=== PATIENT | male | born 1980 | race Caucasian/White ===

== ENCOUNTER 2019-07-19 10:31 | Outpatient (RCR) | payer OTHER, SELFPAY ==
[2019-07-19 13:42] LABS: INR 1.8; Prothrombin Time 20.6 Seconds (11.1-14.7)
== END 2019-10-17 23:59 | disposition home or self-care (01) ==
LOC: ANHLAB 10:31
PROVIDERS: PCP Internal Medicine Hematology & Oncology; Visit Provider Internal Medicine Hematology & Oncology
DX: D68.59 Other primary thrombophilia (principal); Z86.718 Personal history of other venous thrombosis and embolism
CPT/HCPCS: 36415; 85610

== ENCOUNTER 2019-10-18 08:17 | Outpatient (RCR) | payer OTHER, SELFPAY ==
[2019-08-30 14:27] LABS: INR 2.5; Prothrombin Time 26.2 Seconds (11.1-14.7)
[2019-10-18 12:12] LABS: INR 2.9
== END 2019-11-28 23:59 | disposition home or self-care (01) ==
LOC: ANHLAB 08:17
PROVIDERS: PCP Family Medicine; Visit Provider Internal Medicine Hematology & Oncology
DX: D68.59 Other primary thrombophilia (principal); Z86.718 Personal history of other venous thrombosis and embolism
CPT/HCPCS: 36415; 85610

== ENCOUNTER 2019-11-15 09:02 | Outpatient (CLI) | payer OTHER, SELFPAY ==
[2019-11-15 09:17] LABS: Basophils Percent Auto 0.2 % (0.2-1.2); Eosinophils Absolute Auto 0.1 K/mm3 (0-0.3); Eosinophils Percent Auto 1.4 % (0-4.4); Immature Granulocyte Absolute 0.01 K/mm3 (0.00-0.031); Immature Granulocyte Percent A 0.2 % (0-0.5); Lymphocytes Absolute Auto 1.41 K/mm3 (0.9-3.2); Lymphocytes Percent Auto 27.8 % (18.3-44.2); Mean Corpuscular HGB Conc 33.3 g/dl (32-36); Mean Corpuscular Hemoglobin 29.1 pg (26-34); Mean Corpuscular Volume 87.3 fl (80-100); Mean Platelet Volume 10.6 fl (7.4-10.4); Monocytes Absolute Auto 0.6 K/mm3 (0.1-0.6); Neutrophils Percent Auto 58.4 % (45.5-73.1); Platelet Count Result 199 k/mm3 (150-375); Red Cell Distribution Width 13.6 % (11.5-14.5); White Blood Count 5.1 K/mm3 (4.5-10.0)
[2019-11-15 11:08] LABS: INR 1.7; Prothrombin Time 19.9 Seconds (11.1-14.7)
[2019-11-15 11:11] LABS: Alanine Aminotransferase 41 U/L (4-50); Albumin Level 4.3 g/dL (3.5-5.1); Alkaline Phosphatase 65 U/L (38-126); Aspartate Amino Transferase 30 U/L (17-59); Bilirubin,Total 0.5 mg/dL (0.2-1.3); Blood Urea Nitrogen 18 mg/dL (9-20); Calcium 9.1 mg/dL (8.4-10.2); Carbon Dioxide 26 mmol/L (22-30); Chloride 103 mmol/L (98-107); Cholesterol 137 mg/dL (0-200); Estimated Glomerular Filt Rate > 60; Glucose 129 mg/dL (75-110); HDL Direct 33 mg/dL; Hemoglobin A1C 5.6 % (<5.7); Potassium 4.3 mmol/L (3.4-5.0); Sodium 137 mmol/L (137-145); Triglycerides 77 mg/dL (<150)
[2019-11-15 11:22] LABS: LDL Cholesterol Direct 87 mg/dL
== END 2019-11-15 09:03 | disposition home or self-care (01) ==
LOC: ANHLAB 09:04
PROVIDERS: Internal Medicine Hematology & Oncology; PCP Family Medicine; Visit Provider Family Medicine
DX: D68.59 Other primary thrombophilia (principal); Z86.718 Personal history of other venous thrombosis and embolism
CPT/HCPCS: 36415; 80053; 80061; 83036; 84443; 85025; 85610

== ENCOUNTER 2020-02-17 10:34 | Outpatient (RCR) | payer OTHER, SELFPAY ==
[2019-12-31 12:22] LABS: Prothrombin Time 30.3 Seconds (11.1-14.7)
[2020-02-17 12:07] LABS: INR 1.7; Prothrombin Time 19.4 Seconds (11.1-14.7)
== END 2020-03-30 23:59 | disposition home or self-care (01) ==
LOC: ANHLAB 10:34
PROVIDERS: PCP Family Medicine; Visit Provider Internal Medicine Hematology & Oncology
DX: D68.59 Other primary thrombophilia (principal); Z86.718 Personal history of other venous thrombosis and embolism
CPT/HCPCS: 36415; 85610

== ENCOUNTER 2020-04-03 09:02 | Outpatient (CLI) | payer OTHER, SELFPAY ==
[2020-04-03 12:28] LABS: INR 2.6; Prothrombin Time 27.7 Seconds (11.1-14.7)
== END 2020-04-03 09:03 | disposition home or self-care (01) ==
PROVIDERS: PCP Family Medicine; Visit Provider Internal Medicine Hematology & Oncology
DX: D68.59 Other primary thrombophilia (principal); Z86.718 Personal history of other venous thrombosis and embolism
CPT/HCPCS: 36415; 85610

== ENCOUNTER 2020-05-08 09:04 | Outpatient (CLI) | payer OTHER, SELFPAY ==
[2020-05-08 11:35] LABS: INR 1.6; Prothrombin Time 18.7 Seconds (11.1-14.7)
== END 2020-05-08 09:05 | disposition home or self-care (01) ==
LOC: ANHLAB 09:07
PROVIDERS: PCP Family Medicine; Visit Provider Internal Medicine Hematology & Oncology
DX: Z86.718 Personal history of other venous thrombosis and embolism (principal)
CPT/HCPCS: 36415; 85610

== ENCOUNTER 2020-07-31 09:56 | Outpatient (RCR) | payer OTHER, SELFPAY ==
[2020-07-03 13:20] LABS: INR 2.1; Prothrombin Time 23.8 Seconds (11.1-14.7)
[2020-07-31 13:12] LABS: INR 2.1; Prothrombin Time 24.4 Seconds (11.1-14.7)
== END 2020-10-01 23:59 | disposition home or self-care (01) ==
LOC: ANHLAB 09:56
PROVIDERS: PCP Family Medicine; Visit Provider Internal Medicine Hematology & Oncology
DX: Z86.718 Personal history of other venous thrombosis and embolism (principal); D68.59 Other primary thrombophilia
CPT/HCPCS: 36415; 85610

== ENCOUNTER 2020-09-11 08:00 | Outpatient (CLI) | payer OTHER, SELFPAY ==
--- NOTE | ~2020-09-11 | US_ITS ---
EXAMINATION: US arterial ankle brachial ind EXAM DATE: 09/11/2020 09:22 INDICATION: Venous stasis ulcer of leg, varicose veins . TECHNIQUE: Segmental pressures and plethysmographic and Doppler waveforms of the brachial and lower e xtremity arteries were obtained. There is no prior study for comparison. FINDINGS: Right and left brachial artery pressures of 119 mm Hg and 126 mm Hg, respectively, are concordant (no rmal difference <= 30 mmHg). RIGHT LEG: The ankle-brachial index (HERVE) is 1.22 (normal >= 0.9-1). The great toe-brachial index (TBI) is 0.81 (normal >= 0.65). The lower extremity ratios, segmental pressure gradients as follows; Dorsalis pedis: 1.13 (143 mmHg). Posterior tibial: 1.22 (154 mmHg). (Normal gradients <= 20-30 mmHg between adjacent levels on the same leg or the same levels on the two legs). Arterial waveforms are triphasic. LEFT LEG: The ankle-brachial index (HERVE) is 1.09 (normal >= 0.9-1). The great toe-brachial index (TBI) is 0.72 (normal >= 0.65). The lower extremity ratios, segmental pressure gradients as follows; Dorsalis pedis: 1.09 (137 mmHg). Posterior tibial: 1.05 (132 mmHg). (Normal gradients <= 20-30 mmHg between adjacent levels on the same leg or the same levels on the two legs). Arterial waveforms are biphasic. IMPRESSION: 1. Right ankle-brachial index 1.22, normal. 2. Left ankle-brachial index 1.09, normal. Reviewed, dictated and finalized at location D. UNT SUPPORT MANAGER
--- NOTE | ~2020-09-11 | US_ITS ---
EXAMINATION: US venous doppler LE EXAM DATE: 09/11/2020 09:23 INDICATION: Venous stasis ulcer of leg, varicose veins . TECHNIQUE: Multiple grayscale, color flow and Doppler images of the lower extremity deep venous syste ms bilaterally were obtained and reviewed. Comparison is made to prior examination from 05/07/2018. FINDINGS: RIGHT SIDE Common femoral: -------- Normal. Profunda femoral: ------- Normal. Femoral: Normal. Popliteal: Linear scarring likely sequela from prior thrombus. Posterior tibial: --------- Normal. Peroneal: Normal. Gastrocnemius: Not visualized. Soleus: Not visualized. Greater saphenous: ----- Normal. Lesser saphenous: ------ Not visualized. LEFT SIDE Common femoral: -------- Normal. Profunda femoral: ------- Normal. Femoral: Normal. Popliteal: Normal. Posterior tibial: --------- Normal. Peroneal: Normal. Gastrocnemius: Not visualized. Soleus: Not visualized. Greater saphenous: ----- Normal. Lesser saphenous: ------ Not visualized. IMPRESSION: 1. No evidence of lower extremity deep venous thrombosis bilaterally. 2. Right popliteal linear scarring. Reviewed, dictated and finalized at location D. ING SERVICE ADMINISTRATOR
== END 2020-09-11 08:01 | disposition home or self-care (01) ==
LOC: ANHIMG 08:08
PROVIDERS: PCP Physician Assistant; Visit Provider Physician Assistant
DX: I83.009 Varicose veins of unspecified lower extremity with ulcer of unspecified site (principal)
CPT/HCPCS: 93922; 93970

== ENCOUNTER 2020-12-18 09:27 | Outpatient (RCR) | payer OTHER, SELFPAY ==
[2020-10-16 13:41] LABS: INR 2.8; Prothrombin Time 29.8 Seconds (11.1-14.7)
[2020-11-20 12:41] LABS: INR 1.7; Prothrombin Time 20.1 Seconds (11.1-14.7)
[2020-12-18 14:26] LABS: INR 2.3; Prothrombin Time 25.6 Seconds (11.1-14.7)
== END 2021-01-14 23:59 | disposition home or self-care (01) ==
LOC: ANHLAB 09:27
PROVIDERS: PCP Physician Assistant; Visit Provider Internal Medicine Hematology & Oncology
DX: D68.59 Other primary thrombophilia (principal); Z86.718 Personal history of other venous thrombosis and embolism
CPT/HCPCS: 36415; 85610

== ENCOUNTER 2021-05-29 12:56 | Emergency (ER) | payer OTHER, SELFPAY ==
--- NOTE | ~2021-05-29 | XR_ITS ---
EXAMINATION: XR chest 2V 05/29/2021 13:49 INDICATION: Cough PROCEDURE: 2 view chest COMPARISON: 08/14/2007 FINDINGS: The lungs are clear. The cardiomediastinal silhouette is within normal limits. There are no pleural effusions. There is no pneumothorax suspected. IMPRESSION: 1: NO ACUTE CARDIOPULMONARY DISEASE. Reviewed, dictated and finalized at location A.
[2021-05-29 13:08] VITALS: BP 140/86; PULSE 95; RESP 18; TEMP 36.4; O2SAT 96
--- NOTE | 2021-05-29 14:00 | ED.URI ---
HPI - URI/Sore Throat General Chief Complaint: Upper Respiratory Infection Stated Complaint: Sinus,Fever,Cough Source: patient Mode of arrival: ambulatory Limitations: no limitations History of Present Illness HPI Narrative: Patient is a 41-year-old male who presents complaining of cough, congestion, fever, chills and body aches x3 days. Patient reports congestion for over 10 days prior with new symptom onset in the past 3 days. Patient has a significant medical history that includes TX and unknown clotting syndrome. Patient takes Coumadin daily. He is not Covid vaccinated at this time, denies known Covid exposure. He denies all other complaints at this time. MD elicited complaint: fever, cough and nasal congestion Related Data Home Medications Medication Instructions Recorded Confirmed warfarin 10 mg tablet 10 mg PO DAILY 07/22/19 05/29/21 Allergies Allergy/AdvReac Type Severity Reaction Status Date / Time No Known Allergies Allergy Verified 05/29/21 13:47 Review of Systems Review of Systems: CONSTITUTIONAL: Denies fever, chills, or sweats. EYES: Denies visual changes, redness, or discharge. ENT: Reports congestion and sinus pressure. CARDIOVASCULAR: Denies chest pain, palpitations, or edema. RESPIRATORY: Reports cough, denies dyspnea. GASTROINTESTINAL: Denies abdominal pain, nausea, vomiting, or diarrhea. GENITOURINARY: Denies dysuria or hematuria. SKIN: Denies rash or itching. MUSCULOSKELETAL: Denies back pain, joint pain, or myalgia. NEUROLOGIC: Denies headache, numbness, dizziness, or weakness. PSYCHIATRIC: Denies anxiety or depression. [facility] Past Medical History Medical History CAD (coronary artery disease) Environmental allergies Heart attack age 26 History of recurrent deep vein thrombosis (DVT) Hx of blood clots Ingrown toenail of both feet Surgical History Surgical History History of tonsillectomy Family History Family History Grandparent Diabetes mellitus Grandparent Cancer Social History Social History Smoking status: Former smoker Tobacco type: cigarettes Second hand tobacco smoke exposure: No Smoking end date: 08/28/13 Alcohol intake: current Alcohol use details: 1 or 2 beers a month Substance use: never Substance use type: does not use Comments At the time of signature, I have reviewed and agree with nursing past medical, surgical, social, and family history unless otherwise noted. Please see nursing chart for further information. There is no relevant family history pertinent to the presenting complaint. Exam Narrative: GENERAL: Well-appearing, well-nourished, and in no acute distress. HEAD: Normocephalic, atraumatic. EYES: EOMI. No redness or drainage. Conjunctiva are normal. ENT: Mucous membranes pink and moist. Nares clear. No rhinorrhea. TMs normal bilaterally. Throat with mild erythema. Maxillary sinus tenderness with palpation. Uvula midline. NECK: AROM. Supple. No lymphadenopathy. CHEST: Right-sided expiratory wheezes noted. HEART: Regular rate and rhythm. EXTREMITIES: Normal range of motion. SKIN: Warm, dry, no rash. NEURO: No focal deficits. Alert and oriented x3. Gait steady. PSYCH: Normal affect. No signs of depression or anxiety. Course Vital Signs Vital signs: Vital Signs Temperature 36.4 C 05/29/21 13:08 Pulse Rate 95 05/29/21 13:08 Respiratory Rate 18 05/29/21 13:08 Blood Pressure 140/86 05/29/21 13:08 Pulse Oximetry 96 05/29/21 13:08 Temperature 36.4 C 05/29/21 13:08 Pulse Rate 95 05/29/21 13:08 Respiratory Rate 18 05/29/21 13:08 Blood Pressure 140/86 05/29/21 13:08 Pulse Oximetry 96 05/29/21 13:08 Reviewed. Patient has been instructed to follow-up with his PCP re
[2021-06-01 19:14] LABS: SARS-CoV-2 RNA PCR Positive
== END 2021-05-29 14:26 | disposition home or self-care (01) ==
PROVIDERS: Emergency Provider Nurse Practitioner; PCP Physician Assistant
DX: U07.1 COVID-19 (principal); Z87.891 Personal history of nicotine dependence; I25.10 Atherosclerotic heart disease of native coronary artery without angina pectoris; I25.2 Old myocardial infarction; Z86.711 Personal history of pulmonary embolism; D75.9 Disease of blood and blood-forming organs, unspecified
CPT/HCPCS: 71046; 87426; 99213; C9803; G0463; U0003; U0005

== ENCOUNTER 2021-10-07 07:33 | Emergency (ER) | payer OTHER, SELFPAY ==
--- NOTE | ~2021-10-07 | US_ITS ---
US venous doppler LE LT DATE: 10/07/2021 09:23 INDICATION: Swelling left lower extremity. History of deep venous thrombosis, patient on Coumadin the rapy. TECHNIQUE: Real-time and color flow imaging and Doppler analysis of the veins of the left lower extre mity COMPARISON: 09/11/2020 bilateral lower extremity deep venous thrombosis; no evidence of lower extremit y deep venous thrombosis was noted on 09/11/2020 FINDINGS: The left greater saphenous vein is patent. There is spontaneous and phasic flow and normal augmentation, signal and normal compression of the le ft common femoral, femoral and popliteal and peroneal veins. Thrombus is noted within the mid to distal posterior tibial veins and lesser saphenous vein. IMPRESSION: Deep venous thrombosis of left mid to distal posterior tibial veins Reviewed, dictated and finalized at Location A. Reviewed, dictated and finalized at location A. UT GRADER
--- NOTE | ~2021-10-07 | XR_ITS ---
EXAMINATION: XR tibia fibula LT 2V DATE: 10/07/2021 08:56 INDICATION: Open wound at the medial mid left calf. TECHNIQUE: Anteroposterior and lateral views of the left tibia and fibula were obtained. COMPARISON: None. FINDINGS: Alignment is normal. No fracture. No cortical erosions or periosteal reaction. Joint spaces are gini l. Mild soft tissue swelling along the medial aspect of the distal left calf. No soft tissue gas or r adiopaque foreign bodies. IMPRESSION: 1. No osseous abnormality or radiopaque foreign bodies. Reviewed, dictated and finalized at location A. SLINGER
[2021-10-07 07:56] VITALS: BP 136/86; PULSE 76; RESP 13; TEMP 36.7; O2SAT 97
--- NOTE | 2021-10-07 08:50 | ED.EXTPRO ---
HPI - Extremity Problem General Chief complaint: Extremity Problem,Nontraumatic Stated complaint: left leg redness Time Seen by Provider: 10/07/21 08:02 Source: patient Mode of arrival: ambulatory Limitations: no limitations History of Present Illness HPI Narrative: 41 years old white male presents with increased pain and swelling of left lower extremity mainly left foot started few days ago. History of chronic wound at the medial distal left leg for over 2 years. Been to many doctors, and wound care clinic without specific diagnosis. Patient noticed red streaks going up to the groin area at the back of the leg and thigh lately. Patient denies any fever, chills, nausea, vomiting, shortness of breath or chest pain. Patient had history of PE, deep vein thrombosis of the lower extremies for years been on Coumadin for over 19 years. Patient did not take his Coumadin this morning. Related Data Home Medications Medication Instructions Recorded Confirmed warfarin 10 mg tablet 10 mg PO DAILY 07/22/19 10/07/21 Allergies Allergy/AdvReac Type Severity Reaction Status Date / Time vancomycin Allergy Itching Verified 10/07/21 10:56 Review of Systems Review of Systems: CONSTITUTIONAL: Denies fever, chills, or sweats. EYES: Denies visual changes, redness, or discharge. ENT: Denies rhinorrhea, congestion, sore throat, or otalgia. CARDIOVASCULAR: Denies chest pain, palpitations, or edema. RESPIRATORY: Denies cough or dyspnea. GASTROINTESTINAL: Denies abdominal pain, nausea, vomiting, or diarrhea. GENITOURINARY: Denies dysuria or hematuria. SKIN: Denies rash or itching. MUSCULOSKELETAL: Denies back pain, joint pain, or myalgia. NEUROLOGIC: Denies headache, numbness, or weakness. PSYCHIATRIC: Denies anxiety or depression. [facility] Past Medical History Medical History CAD (coronary artery disease) Environmental allergies Heart attack age 26 History of recurrent deep vein thrombosis (DVT) Hx of blood clots Ingrown toenail of both feet Surgical History Surgical History History of tonsillectomy Family History Family History Grandparent Diabetes mellitus Grandparent Cancer Social History Social History Smoking status: Former smoker Tobacco type: cigarettes Second hand tobacco smoke exposure: No Smoking end date: 08/28/13 Alcohol intake: current Alcohol use details: 1 or 2 beers a month Substance use: never Substance use type: does not use Exam Narrative: General appearance: Well-developed, well-nourished Skin: Normal color, left lower extremity showed large dark hyperpigmented area at the medial side distally with a superficial ulcer at the center of it, no discharge, slightly warm, red streaks at the back of the knee and medial side of the thigh tender to touch, swelling tender foot dorsally without any erythema or bruises Head: Normocephalic, nontraumatic Eyes: Clear conjunctiva ENT: Oropharynx normal, ears normal, nose normal Neck: Supple, nontender Chest and respiratory: Airway patent, no respiratory distress, no accessory muscle use Heart: Regular rate/rhythm Abdomen: Soft, nontender, no organomegaly, quiet bowel sounds Vascular: Normal peripheral pulses, normal capillary refill. 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 Moises Murguia, Call o
[2021-10-07 09:29] LABS: Basophils Percent Auto 0.3 % (0.2-1.2); Eosinophils Absolute Auto 0.2 K/mm3 (0-0.3); Eosinophils Percent Auto 2.9 % (0-4.4); Hematocrit 46.7 % (42.0-52.0); Hemoglobin 15.8 g/dL (14.0-18.0); Immature Granulocyte Absolute 0.02 K/mm3 (0.00-0.031); Immature Granulocyte Percent A 0.3 % (0-0.5); Lymphocytes Absolute Auto 1.43 K/mm3 (0.9-3.2); Lymphocytes Percent Auto 24.5 % (18.3-44.2); Mean Corpuscular HGB Conc 33.8 g/dl (32-36); Mean Corpuscular Volume 88.6 fl (80-100); Mean Platelet Volume 10.5 fl (7.4-10.4); Monocytes Absolute Auto 0.8 K/mm3 (0.1-0.6); Monocytes Percent Auto 13.9 % (2.6-8.5); Neutrophils Absolute Auto 3.4 K/mm3 (1.3-6.7); Neutrophils Percent Auto 58.1 % (45.5-73.1); Platelet Count Result 152 k/mm3 (150-375); Red Blood Count 5.27 M/mm3 (4.6-6.20); Red Cell Distribution Width 13.5 % (11.5-14.5); White Blood Count 5.8 K/mm3 (4.5-10.0)
[2021-10-07 10:17] LABS: Alanine Aminotransferase 74 U/L (4-50); Albumin Level 4.3 g/dL (3.5-5.1); Alkaline Phosphatase 61 U/L (38-126); Anion Gap 5 mmol/L (8-16); Aspartate Amino Transferase 53 U/L (17-59); Bilirubin,Total 0.5 mg/dL (0.2-1.3); Blood Urea Nitrogen 21 mg/dL (9-20); Calcium 9.1 mg/dL (8.4-10.2); Carbon Dioxide 28 mmol/L (22-30); Chloride 104 mmol/L (98-107); Estimated CRCL calculation 90 ml/min; Estimated Glomerular Filt Rate > 60; Glucose 118 mg/dL (65-110); Potassium 4.2 mmol/L (3.4-5.0); Sodium 137 mmol/L (137-145)
[2021-10-07 10:39] LABS: INR 1.7; Prothrombin Time 19.7 Seconds (11.1-14.7)
[2021-10-07 10:40] LABS: Partial Thromboplastin Time 36.8 SECONDS (22.3-36.8)
--- NOTE | 2021-10-07 10:55 | PC.NURSE ---
c/o itching all over. pt face and trunk are red. ERP aware.
[2021-10-07] MEDS: methylPREDNISolone SOD SUCC 125 MG VIAL IV PUSH (11:07)
[2021-10-07] MEDS: diphenhydrAMINE HCl INJ 50 MG/ML VIAL IV PUSH (11:07)
[2021-10-07] MEDS: ENOXAPARIN 100 MG/ML SYRINGE 90 MG SUB-Q (11:08)
[2021-10-07 12:02] VITALS: BP 135/74; PULSE 84; RESP 18; O2SAT 98
== END 2021-10-07 12:04 | disposition home or self-care (01) ==
PROVIDERS: Emergency Provider Emergency Medicine; PCP Physician Assistant
DX: I82.442 Acute embolism and thrombosis of left tibial vein (principal); L03.116 Cellulitis of left lower limb; Z87.891 Personal history of nicotine dependence; I25.10 Atherosclerotic heart disease of native coronary artery without angina pectoris; I25.2 Old myocardial infarction
CPT/HCPCS: 36415; 73590; 80053; 85025; 85610; 85730; 93971; 96365; 96372; 96375; 99284; J1200; J1650; J2930; J3370

== ENCOUNTER 2021-10-15 14:07 | Outpatient (CLI) | payer OTHER, SELFPAY ==
[2021-10-15 16:26] LABS: INR 2.7; Prothrombin Time 28.1 Seconds (11.1-14.7)
== END 2021-10-15 14:08 | disposition home or self-care (01) ==
LOC: ANHLAB 14:08
PROVIDERS: PCP Physician Assistant; Visit Provider Internal Medicine Hematology & Oncology
DX: Z79.01 Long term (current) use of anticoagulants (principal)
CPT/HCPCS: 36415; 85610

== ENCOUNTER 2022-03-18 14:05 | Outpatient (CLI) | payer OTHER, SELFPAY ==
[2022-03-18 14:44] LABS: INR 3.9; Prothrombin Time 37.2 Seconds (11.1-14.7)
== END 2022-03-18 14:06 | disposition home or self-care (01) ==
PROVIDERS: PCP Physician Assistant; Visit Provider Internal Medicine Hematology & Oncology
DX: D68.69 Other thrombophilia (principal); Z51.81 Encounter for therapeutic drug level monitoring; Z79.899 Other long term (current) drug therapy
CPT/HCPCS: 36415; 85610

== ENCOUNTER 2022-11-15 04:24 | Emergency (ER) | payer OTHER, SELFPAY ==
[2022-11-15] VITALS (22 sets, daily range): BP systolic 124–154; BP diastolic 80–103; PULSE 67–73; RESP 18; TEMP 36.3; O2SAT 92–99
--- NOTE | ~2022-11-15 | XR_ITS ---
EXAMINATION: XR ribs LT 2V w CXR 2V INDICATION: Chest pain TECHNIQUE: PA and lateral views of the chest and 3 views of the left ribs were obtained. COMPARISON: None. FINDINGS: The lungs are free of acute opacities. No pleural effusion or pneumothorax. The cardiomedia stinal silhouette is normal. The visualized bones and soft tissues are unremarkable. No displaced ri b fracture is identified. A 4 mm calcification of the left upper quadrant may reflect left nephrolith iasis. IMPRESSION: 1. No acute cardiopulmonary abnormality or evidence of displaced rib fracture. Reviewed, dictated and finalized at location L.
--- NOTE | ~2022-11-15 | CT_ITS ---
EXAMINATION: CT chest abdomen pelvis w con DATE: 11/15/2022 09:48 INDICATION: Left flank pain TECHNIQUE: Transaxial computed tomographic images of the chest, abdomen, and pelvis were obtained aft er the administration of 100 cc of Omnipaque 350 intravenous contrast. The dose-length product (DLP) was 938.66 mGy-cm. Automated exposure control and iterative reconstruction technique were employed. COMPARISON: 08/15/2007 FINDINGS: CHEST CT: There is mild dependent atelectasis. No pleural effusion or pneumothorax. No pathologically enlarged thoracic lymph nodes are identified. The heart size is normal. ABDOMEN/PELVIS CT: The liver is diffusely low in attenuation when compared with the spleen, consistent with hepatic stea tosis. The spleen, pancreas, gallbladder, and adrenal glands are normal. Nonobstructing stones of the left kidney measure up to 7 mm. There are areas of cortical scarring of the kidneys. No pathological ly enlarged abdominal or pelvic lymph nodes are identified. There are bilateral inguinal hernias cont aining fat. There is an umbilical hernia containing fat. IMPRESSION: 1. No acute abnormality of the chest, abdomen, or pelvis. Reviewed, dictated and finalized at location L.
--- NOTE | 2022-11-15 07:26 | ED.GENADULT ---
HPI - General Adult General Chief complaint: Unspecified Stated complaint: injury to L ribcage Time Seen by Provider: 11/15/22 07:04 Source: patient, RN notes reviewed and old records reviewed Mode of arrival: ambulatory Limitations: no limitations History of Present Illness HPI narrative: THis is a 42 year old male with history of DVTs on chronic anticoagulation who presents for evaluation of left rib pain. Patient states that he was hit his left rib by high pressure object yesterday. He reports he has minimal pain but this morning he woke up with a cough. He also reports having metallic taste in his mouth similar to the taste of blood. He is concerned because he takes warfarin. He denies shortness of breathing, dizziness or lightheadedness. He denies any bleeding issues. He denies coughing up blood or spitting up blood. He states his last INR was checked over 2 months ago. He rates his pain 09/06. Related Data Home Medications Medication Instructions Recorded Confirmed warfarin 10 mg tablet 10 mg PO DAILY 07/22/19 11/10/22 Allergies Allergy/AdvReac Type Severity Reaction Status Date / Time vancomycin Allergy Itching Verified 11/15/22 06:42 Review of Systems Constitutional: Constitutional: Denies weakness Cardiovascular: Cardiovascular: Denies syncope, Denies rapid heart rate, Denies irregular heart rhythm, Denies leg edema and Denies dyspnea Respiratory: Respiratory: Denies chest congestion, Denies hemoptysis, Denies excessive phlegm production and Denies dyspnea Gastrointestinal: Gastrointestinal: Denies abdominal pain, Denies hematochezia, Denies diarrhea and Denies vomiting Genitourinary: Genitourinary: Denies hematuria, Denies dysuria, Denies penile discharge and Denies testicular pain Musculoskeletal: Musculoskeletal: Denies joint swelling, Denies loss of height and Denies muscle weakness Neurologic: Denies syncope, Denies focal weakness and Denies weakness PMFSH Past Medical History Medical History Abdominal cramping Belching CAD (coronary artery disease) Chronic diarrhea Environmental allergies Fecal urgency GERD (gastroesophageal reflux disease) Heart attack age 26 History of recurrent deep vein thrombosis (DVT) Hx of blood clots Ingrown toenail of both feet Obesity Surgical History Surgical History History of tonsillectomy Family History Family History Grandparent Diabetes mellitus Grandparent Cancer Social History Social History Smoking status: Former smoker Tobacco type: cigarettes Second hand tobacco smoke exposure: No Smoking end date: 08/28/13 Alcohol intake: current Alcohol use details: 1 or 2 beers a month Substance use: never Substance use type: does not use Exam Narrative: GENERAL: Well-appearing, well-nourished, and in no acute distress. HEAD: Normocephalic, atraumatic EYES: EOMI, conjunctiva clear without discharge THROAT:Mucous membranes moist, Oropharynx normal without erythema, exudate, peritonsillar swelling or fluctuance NECK: Supple, without lymphadenopathy or mass RESPIRATORY: No respiratory distress, Airway patent, Respirations non-labored, Clear to auscultation without rales, rhonchi or wheeze HEART: Regular rate and rhythm. No murmur heard. Normal peripheral pulses. ABDOMEN: Soft, nontender, nondistended, normal active bowel sounds. No masses. No rebound or guarding, No organomegaly. EXTREMITIES: No edema, normal strength with full range of motion. SKIN: Warm, dry, normal color without rash NEURO: Alert and oriented x3. CN 2-12 grossly intact. No focal deficits. PSYCH: Normal mood and affect. Neuro: Speech: No Abnormal speech present Course Reevaluation(s) Reevaluation #1: I Discussed with patient CT di
[2022-11-15 07:32] LABS: Basophils Percent Auto 0.2 % (0.2-1.2); Eosinophils Absolute Auto 0.1 K/mm3 (0-0.3); Eosinophils Percent Auto 2.4 % (0-4.4); Hematocrit 45.9 % (42.0-52.0); Hemoglobin 15.5 g/dL (14.0-18.0); Immature Granulocyte Absolute 0.02 K/mm3 (0.00-0.031); Immature Granulocyte Percent A 0.4 % (0-0.5); Lymphocytes Absolute Auto 1.61 K/mm3 (0.9-3.2); Lymphocytes Percent Auto 35.2 % (18.3-44.2); Mean Corpuscular HGB Conc 33.8 g/dl (32-36); Mean Corpuscular Hemoglobin 29.6 pg (26-34); Mean Corpuscular Volume 87.6 fl (80-100); Mean Platelet Volume 10.5 fl (7.4-10.4); Monocytes Absolute Auto 0.7 K/mm3 (0.1-0.6); Monocytes Percent Auto 15.7 % (2.6-8.5); Neutrophils Absolute Auto 2.1 K/mm3 (1.3-6.7); Neutrophils Percent Auto 46.1 % (45.5-73.1); Platelet Count Result 165 k/mm3 (150-375); Red Blood Count 5.24 M/mm3 (4.6-6.20); Red Cell Distribution Width 13.9 % (11.5-14.5); White Blood Count 4.6 K/mm3 (4.5-10.0)
[2022-11-15 07:42] LABS: Alanine Aminotransferase 76 U/L (6-50); Albumin Level 4.3 g/dL (3.5-5.1); Alkaline Phosphatase 62 U/L (38-126); Anion Gap 6 mmol/L (8-16); Aspartate Amino Transferase 43 U/L (17-59); Bilirubin,Total 0.9 mg/dL (0.2-1.3); Blood Urea Nitrogen 19 mg/dL (9-20); Calcium 8.7 mg/dL (8.4-10.2); Carbon Dioxide 29 mmol/L (22-30); Chloride 103 mmol/L (98-107); Estimated CRCL calculation 93 ml/min; Estimated Glomerular Filt Rate > 60; Glucose 108 mg/dL (65-110); Sodium 138 mmol/L (137-145)
[2022-11-15 07:46] LABS: INR 2.2; Partial Thromboplastin Time 36.5 SECONDS (22.3-36.8); Prothrombin Time 23.3 Seconds (11.1-14.7)
== END 2022-11-15 10:35 | disposition home or self-care (01) ==
PROVIDERS: Emergency Provider General Practice; PCP Physician Assistant
DX: S20.212A Contusion of left front wall of thorax, initial encounter (principal); W20.8XXA Other cause of strike by thrown, projected or falling object, initial encounter; I25.10 Atherosclerotic heart disease of native coronary artery without angina pectoris; I25.2 Old myocardial infarction; K21.9 Gastro-esophageal reflux disease without esophagitis; E66.9 Obesity, unspecified; Z68.30 Body mass index [BMI] 30.0-30.9, adult; Z87.891 Personal history of nicotine dependence; Z86.718 Personal history of other venous thrombosis and embolism; Z79.01 Long term (current) use of anticoagulants
CPT/HCPCS: 36415; 71046; 71100; 71260; 74177; 80053; 85025; 85610; 85730; 99284; Q9967

== ENCOUNTER 2022-12-26 01:21 | Day surgery (SDC) | payer OTHER, SELFPAY ==
[2022-12-14 14:11] VITALS: BMI 30.9
[2022-12-26 10:34] VITALS: BP 138/99; PULSE 82; RESP 20; TEMP 36.4; O2SAT 95
[2022-12-26] MEDS: LACTATED RINGERS 1,000 ML 150 ML IV CONT (10:41)
--- NOTE | 2022-12-26 11:00 | P.PNAN_ITS ---
Anes - Initial Pre Proc Eval Procedure: Operation Date: 12/26/22 11:30 Proposed Procedures p Esophagogastroduodenoscopy & Colonoscopy - Milton Gardner MD Date/Time: 12/26/22 11:00 Surgeon: Milton Gardner MD Pre Op Diagnosis: GERD, colitis,gastroenteritis,fecal urgency Patient Data Age: 42 Gender: M Height: 1.78 m Weight: 96.5 kg Last Vital Signs Temp 97.5 F L 12/26/22 10:34 Pulse 82 12/26/22 10:34 Resp 20 12/26/22 10:34 BP 138/99 H 12/26/22 10:34 Pulse Ox 95 12/26/22 10:34 O2 Del Method Room Air 12/26/22 10:34 Allergies Allergy/AdvReac Type Severity Reaction Status Date / Time vancomycin Allergy Itching Verified 12/26/22 10:33 Home Medications Medication Instructions Recorded Confirmed Type warfarin 10 mg tablet 10 mg PO DAILY 07/22/19 12/26/22 History omeprazole 20 mg capsule,delayed 20 mg PO DAILY 12/26/22 12/26/22 History release Patient hx anesthesia problems: none Family hx anesthesia problems: none Results Review: All pre-operative results and documents have been reviewed as part of the pre- operative evaluation. [facility] Past Medical History Medical History Abdominal cramping Belching CAD (coronary artery disease) Chronic diarrhea Environmental allergies Fecal urgency GERD (gastroesophageal reflux disease) Heart attack age 26 History of recurrent deep vein thrombosis (DVT) Hx of blood clots Ingrown toenail of both feet Obesity Surgical History Surgical History History of tonsillectomy Family History Family History Grandparent Diabetes mellitus Grandparent Cancer Social History Social History Smoking packs per day: 1.5 Smoking cigarettes per day: 30.0 Years smoked: 18 Smoking pack-years: 27.00 Smoking status: Former smoker Tobacco type: cigarettes Second hand tobacco smoke exposure: No Smoking end date: 08/28/13 Alcohol intake: never Alcohol use details: 1 or 2 beers a month Substance use: never Substance use type: does not use Living arrangements: with family Spiritual care concerns: No Anes - Eval Final PreProcedure Day of Procedure 12/26/22 11:00 Patient weight: obese Heart: regular rate and rhythm Lungs: clear to auscultation Airway: Mallampati scale class II Neurological: alert and oriented Last oral intake: >/= 8 hours ASA classification: III Emergent: no Anesthetic plan: proceed Anesthesia type and monitoring: general GIVS and standard monitoring Results Review: All pre-operative results and documents have been reviewed as part of the pre- operative evaluation. Informed Consent: The patient's anesthetic plan and its attendant risks and benefits were discussed with the patient/family/POA. Questions were solicited and answers provided to the satisfaction of the patient/family/POA.
--- NOTE | 2022-12-26 11:17 | PM.HPGS ---
History of Present Illness History of Present Illness Consent: Risks, benefits, and alternatives have been discussed and questions answered. Patient agrees to proceed with procedure. Chief complaint: GERD, colitis,gastroenteritis,fecal urgency Narrative: Fernando Andrade Jr. is a 42 year old male with gerd better since using omeprazole, also post-prandial diarrhea, never had scopes. He is using coumadin (on hold for scopes) Review of Systems Constitutional: Constitutional: Denies headache(s) and Denies weakness Eyes: Eyes: Denies blurry vision ENT: Reports Normal hearing present, Denies headache(s) and Denies neck pain Cardiovascular: Cardiovascular: Denies chest pain and Denies dyspnea Respiratory: Respiratory: Denies dyspnea Gastrointestinal: Gastrointestinal: Reports no additional gastrointestinal complaints Genitourinary: Genitourinary: Denies dysuria Musculoskeletal: Musculoskeletal: Denies neck pain Integumentary/Breasts: Skin/Breast: Denies dry skin Neurologic: Reports Normal hearing present, Denies headache(s) and Denies weakness Psychiatric: Psychiatric: Denies anxiety Endocrine: Endocrine: Denies change in body appearance Hematologic/Lymphatic: Hematologic/Lymphatic: Denies easy bleeding Allergic/Immunologic: Allergic/Immunologic: Denies urticaria PMFSH Past Medical History Medical History Abdominal cramping Belching CAD (coronary artery disease) Chronic diarrhea Environmental allergies Fecal urgency GERD (gastroesophageal reflux disease) Heart attack age 26 History of recurrent deep vein thrombosis (DVT) Hx of blood clots Ingrown toenail of both feet Obesity Surgical History Surgical History History of tonsillectomy Family History Family History Grandparent Diabetes mellitus Grandparent Cancer Social History Social History Smoking packs per day: 1.5 Smoking cigarettes per day: 30.0 Years smoked: 18 Smoking pack-years: 27.00 Smoking status: Former smoker Tobacco type: cigarettes Second hand tobacco smoke exposure: No Smoking end date: 08/28/13 Alcohol intake: never Alcohol use details: 1 or 2 beers a month Substance use: never Substance use type: does not use Living arrangements: with family Spiritual care concerns: No Meds Home Medications and Allergies Home Medications Medication Instructions Recorded Confirmed Type warfarin 10 mg tablet 10 mg PO DAILY 07/22/19 12/26/22 History omeprazole 20 mg capsule,delayed 20 mg PO DAILY 12/26/22 12/26/22 History release Allergies Allergy/AdvReac Type Severity Reaction Status Date / Time vancomycin Allergy Itching Verified 12/26/22 10:33 Vital Signs Vital Signs - 24 hr 12/26/22 10:34 Temperature 97.5 F L Pulse Rate 82 Respiratory Rate 20 Blood Pressure 138/99 H Pulse Oximetry 95 Oxygen Delivery Room Air Exam Const: General: comfortable and no acute distress HENMT: Face/Nose/Sinus: Normal nares present Eyes: General: appearance normal, both eyes and all related structures Neck: Neck: no JVD Resp: Auscultation: clear to auscultation bilaterally Cardio: Rate: regular rate Rhythm: regular rhythm GI: Inspection: non-distended GI Palp: Yes Soft to palpation Skin: General skin exam: normal color Neuro: General: gait normal Speech: normal speech Extrem: General: normal to inspection Psych: Mental Status: mental status grossly normal Assessment and Plan Assessment and plan (1) GERD (gastroesophageal reflux disease): Code(s): K21.9 - Gastro-esophageal reflux disease without esophagitis Status: Acute Assessment and Plan: egd with bx better with ppi (2) Irritable bowel syndrome with diarrhea: Code(s): K58
[2022-12-26 11:46] VITALS: BP 113/68; PULSE 79; RESP 18; O2SAT 92
--- NOTE | 2022-12-26 11:47 | SUR.OPER ---
EGD completed at 1128, Colonoscopy started at 1154
[2022-12-26 11:56] VITALS: BP 104/71; PULSE 71; RESP 15; O2SAT 92
[2022-12-26 12:06] VITALS: BP 119/80; PULSE 70; RESP 16; O2SAT 96
== END 2022-12-26 12:16 | disposition home or self-care (01) ==
PROVIDERS: PCP Physician Assistant; Visit Provider Internal Medicine Gastroenterology
PROC: 0DJ08ZZ Inspection of Upper Intestinal Tract, Via Natural or Artificial Opening Endoscopic (ICD-10-PCS; CPT 43235; principal; 2022-12-26 11:30)
DX: K58.0 Irritable bowel syndrome with diarrhea (principal); K57.30 Diverticulosis of large intestine without perforation or abscess without bleeding; K63.5 Polyp of colon; K21.00 Gastro-esophageal reflux disease with esophagitis, without bleeding; K44.9 Diaphragmatic hernia without obstruction or gangrene; I25.10 Atherosclerotic heart disease of native coronary artery without angina pectoris; I25.2 Old myocardial infarction; Z86.718 Personal history of other venous thrombosis and embolism; Z79.01 Long term (current) use of anticoagulants; Z87.891 Personal history of nicotine dependence; E66.9 Obesity, unspecified; Z68.30 Body mass index [BMI] 30.0-30.9, adult
CPT/HCPCS: 45385; 45380; 43239; 88305; J2704; J7120

== ENCOUNTER 2023-03-29 11:34 | Outpatient (CLI) | payer OTHER, SELFPAY ==
[2023-03-29 14:42] LABS: INR 2.4; Prothrombin Time 28.3 Seconds (11.1-14.7)
== END 2023-03-29 11:35 | disposition home or self-care (01) ==
LOC: ANHLAB 11:36
PROVIDERS: PCP Physician Assistant; Visit Provider Internal Medicine Hematology & Oncology
DX: Z86.718 Personal history of other venous thrombosis and embolism (principal)
CPT/HCPCS: 36415; 85610

== ENCOUNTER 2024-02-08 15:28 | Outpatient (CLI) | payer OTHER, SELFPAY ==
--- NOTE | ~2024-02-08 | XR_ITS ---
Supine and upright views of the abdomen Clinical history: Abdominal bloating, hernia Findings: Bowel gas pattern is nonspecific. No evidence for obstruction or free air. Left renal stone s are present, measuring up to 5 mm. Possible punctate right renal stones.. Osseous structures are in tact. Impression: Nephrolithiasis, as detailed above. Reviewed, dictated and finalized at location . Impression: Nephrolithiasis, as detailed above.
== END 2024-02-08 15:29 | disposition home or self-care (01) ==
LOC: ANHIMG 15:29
PROVIDERS: PCP Physician Assistant; Visit Provider Nurse Practitioner
DX: R14.0 Abdominal distension (gaseous) (principal); N20.0 Calculus of kidney
CPT/HCPCS: 74018

== ENCOUNTER 2024-02-28 08:10 | Outpatient (CLI) | payer OTHER, SELFPAY ==
--- NOTE | ~2024-02-28 | XR_ITS ---
EXAMINATION: XR UGI w small bowel DATE: 02/28/2024 10:22 INDICATION: Abdominal bloating. Gastroesophageal reflux disease. TECHNIQUE: The patient drank thick barium, gas-producing crystals, and thin barium. Fluoroscopy of th e esophagus, stomach, and small bowel was performed. Fluoroscopy exposure time was 0.3 minutes. Radio graphs of the abdomen were obtained. The total number of images was 204. COMPARISON: CT 11/15/2022 FINDINGS: UPPER GASTROINTESTINAL SERIES: There is no mass or stricture of the esophagus. Esophageal motility is normal. There is no hiatal her chavez. There was no gastroesophageal reflux with provocative maneuvers. The stomach shows a normal fold ing pattern. SMALL BOWEL SERIES: The small bowel shows a normal folding pattern. Specifically, the terminal ileum is normal. Transit t nathanael to the colon was 1.5 hours. IMPRESSION: 1. Normal upper gastrointestinal series. 2. Normal small bowel series. Reviewed, dictated and finalized at location A.
== END 2024-02-28 08:11 | disposition home or self-care (01) ==
PROVIDERS: Visit Provider Nurse Practitioner
DX: K44.9 Diaphragmatic hernia without obstruction or gangrene (principal); K21.00 Gastro-esophageal reflux disease with esophagitis, without bleeding
CPT/HCPCS: 74240; 74248

== ENCOUNTER 2024-06-06 07:42 | Outpatient (CLI) | payer OTHER, SELFPAY ==
--- NOTE | ~2024-06-06 | NM_ITS ---
EXAM: NM gastric emptying study DATE: 06/06/2024 12:22 INDICATION: Early satiety. Regurgitation. Reflux. TECHNIQUE: A gastric emptying study was performed using the methodology of Kortney HDZ, et al. J Nucl Med 2007; 48:568-572. The patient was given a meal consisting of 2 scrambled eggs labeled with 1.004 mCi Tc-99m sulfur colloid, 2 slices of toast, two packages of jam, and approximately 120 mL of water . Simultaneous anterior and posterior 1-min images of the abdomen were obtained with the patient supi ne at multiple time points over a total period of 4 hours. The geometric mean of anterior and posteri or views was determined, and the percentage retention was calculated for each time point. COMPARISON: CT abdomen pelvis 11/15/2022 FINDINGS: Gastric retention of the radiotracer-labeled meal was 42%, 17%, and 4% at the 1-hour, 2-ho ur, and 4-hour time points, respectively. With this technique, apparent rapid gastric emptying is sug gested by <30% gastric retention at 1 hour. Delayed gastric emptying is defined by gastric retention of >90% at 1 hour, >60% retention at 2 hours, or >10% retention at 4 hours. IMPRESSION: 1. Normal gastric emptying. Reviewed, dictated and finalized at location A. IMPRESSION: 1. Normal gastric emptying.
== END 2024-06-06 07:43 | disposition home or self-care (01) ==
PROVIDERS: PCP Physician Assistant; Visit Provider Nurse Practitioner
DX: R14.0 Abdominal distension (gaseous) (principal); R11.10 Vomiting, unspecified; R05.9 Cough, unspecified
CPT/HCPCS: 78264; A9541

== ENCOUNTER 2024-08-01 16:08 | Outpatient (CLI) | payer OTHER, SELFPAY ==
[2024-08-01 16:58] LABS: Alanine Aminotransferase 55 U/L (6-50); Albumin Level 4.8 g/dL (3.5-5.1); Alkaline Phosphatase 93 U/L (38-126); Aspartate Amino Transferase 41 U/L (17-59); Bilirubin,Total 0.7 mg/dL (0.2-1.3)
[2024-08-01 19:02] LABS: Hepatitis B Surface Antigen Negative (Negative)
[2024-08-01 19:08] LABS: HAV RESULT Negative (Negative); Hepatitis B Core IgM Result Negative (Negative)
[2024-08-01 19:20] LABS: Hepatitis C Virus Antibody Negative (Negative)
== END 2024-08-01 16:09 | disposition home or self-care (01) ==
LOC: ANHLAB 16:10
PROVIDERS: PCP Physician Assistant; Visit Provider Nurse Practitioner
DX: R79.89 Other specified abnormal findings of blood chemistry (principal)
CPT/HCPCS: 36415; 80074; 80076